=== PATIENT | female | born 1955 | race Hispanic/Latino ===

== ENCOUNTER 2017-12-01 15:19 | Outpatient (CLI) | payer BC | END 2017-12-01 15:20 | disposition home or self-care (01) | LOC: BICMAMMO 15:19 | PROVIDERS: ATTEND Family Medicine | DX: Z12.31 Encounter for screening mammogram for malignant neoplasm of breast (principal) | CPT/HCPCS: 77063; 77067 ==

== ENCOUNTER 2018-10-20 07:20 | Outpatient (CLI) | payer BC ==
[2018-10-20 08:09] LABS: Estimated GFR-MDRD - POC Greater than 90
--- NOTE | 2018-10-20 10:31 | CT ---
ABDOMEN AND PELVIC CT SCAN WITH IV CONTRAST: Date: 10/20/18 HISTORY: 63-year-old female with history of epigastric pain and gastritis. Helicobacter associated gastritis. FINDINGS: Lung bases appear clear. Small hiatal hernia. There is an approximately 3.0 cm diameter nodular soft tissue density in the fundus of the stomach. I f the patient has not been endoscoped recently and this is a suspected new finding, consideration for endoscopy should be considered. The liver, gallbladder, pancreas, spleen, and adrenal glands are unremarkable. No renal calculus or G U obstruction. Very small, fat-containing umbilical hernia. Huge, lower anterior abdominal wall hernia, extending fr om right lateral to left lateral abdomen, overall 30 cm transversely, containing extensive mesentery and small bowel. Within this huge hernia, there are some areas of what appear to be linear fibrosis a nd possible scarring with some associated mesenteric fat stranding resulting in some traction changes upon the small bowel, somewhat mass-like in appearance, but without a focal discrete mass. There is at least one minimally enlarged mesenteric lymph node up to 0.8 cm in short axis. There do appear to be several small bowel loops associated with this hernia, as well as this area of mesenteric fibrotic change which shows some minimal focal wall thickening, which is nonspecific. Some of these small bowel loops have a somewhat tethered appearance. IMPRESSION: 1. Huge anterior abdominal wall hernia extending from the right lateral to the left lateral abdomen, containing some linear stranding, having the appearance of some chronic fibrosis and/or scarring, so mewhat associated with several small bowel loops which appear slightly tethered. There is at least on e borderline enlarged mesenteric lymph node. 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 No evidence for bowel obstruction. 2. Approximately 3.0 cm diameter somewhat focal nodular area of soft tissue density in the fundus of the stomach. 3. Small hiatal hernia. 4. No evidence for other significant acute process. Consider follow-up evaluation to ensure stabilit y. POS: TPC
== END 2018-10-20 07:21 | disposition home or self-care (01) ==
LOC: BICCT 07:20
PROVIDERS: ATTEND Internal Medicine Gastroenterology
DX: R10.13 Epigastric pain (principal); B96.81 Helicobacter pylori [H. pylori] as the cause of diseases classified elsewhere; K43.9 Ventral hernia without obstruction or gangrene; R59.0 Localized enlarged lymph nodes; R93.3 Abnormal findings on diagnostic imaging of other parts of digestive tract; K44.9 Diaphragmatic hernia without obstruction or gangrene
CPT/HCPCS: 74177; 82565

== ENCOUNTER 2018-12-01 15:44 | Outpatient (CLI) | payer BC ==
[2018-12-01 17:43] LABS: #Basophils 0.1 thou/uL (0.0-0.2); #Eosinphils 0.2 thou/uL (0.0-0.7); #Lymphocytes 2.1 thou/uL (1.20-3.40); #Monocytes 0.4 thou/uL (0.11-0.59); #Neutrophils 4.2 thou/uL (1.40-6.50); %Basophils 1.1 % (0.0-1.0); %Monocytes 5.3 % (0.0-10.0); %Neutrophils 60.6 % (42.0-75.0); Mean Corpuscular HGB CONC 33.1 g/dL (32.0-36.0); Mean Corpuscular Volume 81.7 fL (78.0-98.0); Mean Platelet Volume 8.7 fL (7.4-10.4); Platelet Count 274 thou/uL (130-400); RBC Distribution Width 12.7 % (11.5-14.5); Red Blood Cell (RBC) Count 4.81 mill/uL (4.20-5.40)
[2018-12-01 18:03] LABS: ALT (SGPT) 11 U/L (8-55); AST (SGOT) 15 U/L (5-34); Albumin 4.1 g/dL (3.4-4.8); Alkaline Phosphatase 118 U/L (40-150); Anion Gap 12 mmol/L (10-20); BUN (Urea Nitrogen) 8 mg/dL (9.8-20.1); Bilirubin, Total 0.5 mg/dL (0.2-1.2); Calc. Creatinine Clearance 0 mL/min (70-130); Calcium 9.6 mg/dL (7.8-10.44); Carbon Dioxide 27 mmol/L (23-31); Chloride 103 mmol/L (98-107); Estimated GFR-MDRD Greater than 90; Globulin 3.6 g/dL (2.4-3.5); Glucose 92 mg/dL (80-115); Potassium 3.3 mmol/L (3.5-5.1); Protein, Total 7.7 g/dL (6.0-8.3); Sodium 139 mmol/L (136-145)
== END 2018-12-01 15:45 | disposition home or self-care (01) ==
LOC: LABBT 15:44
PROVIDERS: ATTEND Surgery
DX: Z01.812 Encounter for preprocedural laboratory examination (principal); K43.2 Incisional hernia without obstruction or gangrene
CPT/HCPCS: 80053; 85025; 93005; 93010

== ENCOUNTER 2018-12-02 14:09 | Outpatient (CLI) | payer BC | END 2018-12-02 14:10 | disposition home or self-care (01) | LOC: BICMAMMO 14:09 | PROVIDERS: ATTEND Family Medicine | DX: Z12.31 Encounter for screening mammogram for malignant neoplasm of breast (principal) | CPT/HCPCS: 77063; 77067 ==

== ENCOUNTER 2018-12-08 05:45 | Inpatient (IN) | payer BC ==
[2018-12-01 16:11] VITALS: BMI 34.2
[2018-12-08] MEDS ORDERED: Bupivacaine HCl 0.5%/Epinephrine 1:200,000/PF 30 ml Vial ONE (06:34)
[2018-12-08] MEDS ORDERED: CEFAZOLIN 2 GM/50 ML BAG ONE (06:39)
[2018-12-08] MEDS ORDERED: Fentanyl 100 MCG/2 ML VIAL ONE (07:23)
[2018-12-08] MEDS ORDERED: SUGAMMADEX SODIUM 200 MG/2 ML VIAL ONE (07:23)
[2018-12-08] MEDS ORDERED: Midazolam HCl 2 mg/2 ml Vial ONE (07:23)
[2018-12-08] MEDS ORDERED: Ondansetron HCl/PF 4 MG/2 ML Vial IVP PRN (08:36)
[2018-12-08] MEDS ORDERED: HYDROmorphone 2 MG/ML VIAL SLOW IVP PRN (08:36)
[2018-12-08] MEDS ORDERED: Promethazine HCl 25 MG/ML VIAL IM PRN ×3 (08:36→10:41)
[2018-12-08] MEDS ORDERED: Promethazine HCl 25 MG/ML VIAL SLOW IVP PRN (08:36)
[2018-12-08] MEDS ORDERED: diphenhydrAMINE 50 MG/ML VIAL IVP PRN (08:37)
[2018-12-08] MEDS ORDERED: fentaNYL Citrate/PF 2,000 MCG in Sodium Chloride 0.9% 60 ML IV PRN (08:37)
[2018-12-08] MEDS ORDERED: diphenhydrAMINE 25 MG CAP PO PRN (08:37)
[2018-12-08] MEDS ORDERED: Ondansetron PF 4 MG/2 ML Vial IVP PRN ×2 (08:37→10:41)
[2018-12-08] MEDS ORDERED: diphenhydrAMINE 50 MG/ML VIAL IM PRN (08:37)
[2018-12-08] MEDS ORDERED: Naloxone HCl 0.4 mg/ml Vial IV PRN (08:37)
[2018-12-08] MEDS ORDERED: Zolpidem Tartrate 5 MG TAB PO PRN (08:37)
[2018-12-08] MEDS ORDERED: Ketorolac Tromethamine 30 MG/ML VIAL IVP PRN (08:37)
[2018-12-08] MEDS ORDERED: Communication Order-Pharmacy FS SCH (08:45)
[2018-12-08] MEDS ORDERED: hydrALAZINE 20 MG/ML VIAL SLOW IVP PRN (10:41)
[2018-12-08] MEDS: Acetaminophen 1,000 MG in Premix Bag 1 BAG IVPB SCH ×2 (12:40→17:43)
[2018-12-08] MEDS ORDERED: PROPOFOL 200 MG/20 ML VIAL ONE (13:09)
[2018-12-08] MEDS ORDERED: Ondansetron PF 4 MG/2 ML Vial ONE (13:09)
[2018-12-08] MEDS ORDERED: Ketorolac Tromethamine 30 MG/ML VIAL ONE (13:09)
[2018-12-08] MEDS ORDERED: Rocuronium Bromide 10 MG/ML (10ML VIAL) ONE (13:09)
[2018-12-08] MEDS ORDERED: Dexamethasone 20 MG/5 ML VIAL ONE (13:09)
[2018-12-08] MEDS ORDERED: Glycopyrrolate 0.2 MG/ML 5 ML SYRINGE ONE (13:09)
[2018-12-08] MEDS ORDERED: Lidocaine 1% PF 5 ML VIAL ONE (13:09)
[2018-12-08] MEDS: CEFAZOLIN 2 GM/50 ML BAG IVPB SCH ×2 (14:43→22:26)
[2018-12-08] MEDS: Sodium Chloride 0.9% 1,000 ML IV SCH ×2 (17:12→19:47)
[2018-12-08] MEDS: Famotidine 20 MG TAB PO SCH (19:47)
[2018-12-08] MEDS: Famotidine/PF 20 mg/2ml Vial SLOW IVP SCH (19:48)
[2018-12-09] MEDS: Acetaminophen 1,000 MG in Premix Bag 1 BAG IVPB SCH ×2 (00:28→05:13)
[2018-12-09] MEDS: Sodium Chloride 0.9% 1,000 ML IV SCH ×3 (05:13→21:39)
[2018-12-09 06:36] LABS: #Lymphocytes 1.4 thou/uL (1.20-3.40); #Monocytes 0.8 thou/uL (0.11-0.59); #Neutrophils 9.7 thou/uL (1.40-6.50); %Basophils 0.4 % (0.0-1.0); %Eosinophils 0.2 % (0.0-10.0); %Lymphocytes 11.8 % (21.0-51.0); %Monocytes 6.9 % (0.0-10.0); %Neutrophils 80.7 % (42.0-75.0); Hemoglobin 11.6 g/dL (12.0-16.0); Mean Corpuscular HGB CONC 32.3 g/dL (32.0-36.0); Mean Corpuscular Hemoglobin 27.1 pg (27.0-31.0); Mean Corpuscular Volume 83.7 fL (78.0-98.0); Mean Platelet Volume 8.7 fL (7.4-10.4); Platelet Count 284 thou/uL (130-400); Red Blood Cell (RBC) Count 4.29 mill/uL (4.20-5.40)
[2018-12-09 07:01] LABS: Anion Gap 15 mmol/L (10-20); BUN (Urea Nitrogen) 8 mg/dL (9.8-20.1); Calc. Creatinine Clearance 131 mL/min (70-130); Calcium 8.4 mg/dL (7.8-10.44); Carbon Dioxide 20 mmol/L (23-31); Chloride 105 mmol/L (98-107); Estimated GFR-MDRD Greater than 90; Glucose 117 mg/dL (80-115); Potassium 4.1 mmol/L (3.5-5.1); Sodium 136 mmol/L (136-145)
--- NOTE | 2018-12-09 09:40 | OP ---
DATE OF PROCEDURE: 12/08/2018 PREOPERATIVE DIAGNOSIS: Incarcerated recurrent incisional ventral hernia with loss of abdominal domain. PROCEDURE PERFORMED: Panniculectomy, 30 x 10 cm resection of the skin, lysis of adhesions, advancement flap, recurrent ventral hernia repair with mesh. INDICATIONS: This is a 63-year-old female who has had two previous incisional ventral hernia repairs in the suprapubic area with recurrence and loss of intestinal domain, both right and left had very large incarcerated ventral hernias. FINDINGS: There were multiple small hernias comprising a larger defect of 8 x 8 cm in the suprapubic region. A 15 x 20 cm piece of mesh was placed was used to help repair in the midline and an 8 x 8 cm piece of mesh was used to support a relaxing incision left lateral. DESCRIPTION OF PROCEDURE: After informed consent was obtained, the patient was taken to the operating room and given general endotracheal anesthesia. She was placed in the supine position. Her abdomen was prepped and draped in usual fashion. An elliptical Pfannenstiel style incision was performed to incise the skin over the hernias. This was further extended utilizing the plasma blade, then dissected out the hernias. There were not reducible. I opened the hernia sac, but it was incarcerated and the bowel was stuck to the hernia sac, so just a slow tedious dissection of taking the bowel down and removing the hernia sac and skin. Once the bowel was fully freed up and the hernia sac was removed. Multiple hernias were found. They were equal or less than to one single large hernia which was about 8 cm. The defect was such though that without relaxation there be too much tension. However, unfortunately within the lower abdomen, I did a relaxing incision of the external oblique fascia. This allowed advancement of the tissue for closure. However, without mesh, this with the left another flank incision, so I wound up using a round piece of 8 x 8 cm Proceed mesh. This was placed in the subfascial plane and secured with 0 Ethibond. Then, a 15 x 20 cm piece of Proceed mesh, which was skirted was prepared with 0 Ethibond in four quadrants. It was inserted intra-abdominally and pulled up to cover the defect with relaxation to help with closure of the midline. Then, the SecureStrap Tacker was used to further secure this to the abdominal wall with the tacks. Then, the midline was closed with #1 Prolene [id number], not under tension. Then, hemostasis assured. The wounds thoroughly irrigated. Of note, I did place omentum under the mesh before we secured it. Then, two drains were placed and brought out through the separate stab wounds. The subcu was reapproximated with interrupted 3-0 Vicryl and the skin closed with skin freida. A sterile bandage applied as well as an abdominal binder. The patient tolerated the procedure well, transferred to Recovery in good condition. Sponge and needle count verified correct x2. Job ID: [id number]
[2018-12-09] MEDS: Enoxaparin Sodium 40 MG/0.4 ML SYRINGE SC SCH (09:56)
[2018-12-09] MEDS: Famotidine 20 MG TAB PO SCH ×2 (09:56→21:38)
[2018-12-09] MEDS: Famotidine/PF 20 mg/2ml Vial SLOW IVP SCH ×2 (09:57→21:40)
--- NOTE | 2018-12-09 09:57 | PRG ---
DATE OF SERVICE: 12/09/2018 SUBJECTIVE: The patient states that her pain is fairly well controlled at about 3 to 4. She reports no nausea or vomiting, but has not passed any flatus yet. She has a catheter in with good urine output. She is tolerating clear liquids and hungry for advancing her diet. OBJECTIVE: VITAL SIGNS: Her temperature is 98.2, pulse 82, and blood pressure 109/69. GENERAL: She looks good. She is awake, alert, walking. No evidence of recurrence of the hernia. Her drains are putting out 50 and 20, a total of 70 mL. Urine output was 1000. LABORATORY DATA: Her white count is 12, hemoglobin and hematocrit of 11 and 35, platelet count 284. Electrolytes are fine. ASSESSMENT: Doing well. PLAN: Full liquids. Discontinue Mcgowan. Keep ambulating. Job ID: [id number]
[2018-12-10] MEDS: Sodium Chloride 0.9% 1,000 ML IV SCH ×3 (05:45→21:08)
[2018-12-10] MEDS: Famotidine/PF 20 mg/2ml Vial SLOW IVP SCH ×2 (10:05→21:08)
[2018-12-10] MEDS: Famotidine 20 MG TAB PO SCH ×2 (10:14→21:22)
--- NOTE | 2018-12-10 12:50 | PRG ---
DATE OF SERVICE: 12/10/2018 SUBJECTIVE: The patient is a 63-year-old female, status post panniculectomy, skin resection, lysis of adhesions, advancement of flap, and recurrent ventral hernia repair. She is postop day 2 and this morning, she reported she is urinating without difficulties and has had bowel movements overnight. She was advanced to a regular diet and is tolerating that fine. Pain is well controlled. Lower abdominal dressings are in place and the patient reports no significant oozing or drainage. She continues to ambulate and sit up in bed. She denies nausea, vomiting, diarrhea, and states her pain is well controlled. OBJECTIVE: VITAL SIGNS: Temperature 98.5, pulse 100, respirations 18, oxygen saturation 92% on room air, blood pressure 130/79. GENERAL: Alert and well-appearing, middle-aged female, sitting up at edge of bed. NEUROLOGIC: GCS is 15. Alert and oriented x3. Gross motor and sensation intact. Pupils equal, round, reactive to light. PULMONARY: No signs of acute distress. Equal chest rise and fall. Lung donato clear bilaterally. HEART: Tachycardic, but with regular rhythm. No murmurs, gallops, or rubs. GI: Abdomen is soft, appropriately tender to palpation, and nondistended with positive bowel sounds. Lower abdominal wound dressing is clean, dry, and intact with no signs of purulence or discharge. EXTREMITIES: Gross motor and sensation intact in all four extremities. 2+ pulses in all extremities. No swelling noted. LABORATORY FINDINGS: There are no laboratory findings to discuss. DIAGNOSTIC FINDINGS: There are no diagnostic findings to discuss. ASSESSMENT: Status post incarcerated ventral hernia. PLAN: The patient was encouraged to continue to ambulate. She is also to continue a regular diet. Her wound dressing will be evaluated tomorrow. Continue pain regimen as previously prescribed as well as Lovenox for DVT prophylaxis. We will continue to receive supportive care as well as physical therapy. The patient was seen and examined by Dr. Ibarra and myself during rounds this morning. Job ID: [id number]
[2018-12-10] MEDS: Enoxaparin Sodium 40 MG/0.4 ML SYRINGE SC SCH (13:41)
[2018-12-11] MEDS ORDERED: Ibuprofen 600 MG TAB PO PRN (05:28)
[2018-12-11 07:36] LABS: #Eosinphils 0.5 thou/uL (0.0-0.7); #Lymphocytes 1.1 thou/uL (1.20-3.40); #Monocytes 0.4 thou/uL (0.11-0.59); #Neutrophils 3.1 thou/uL (1.40-6.50); %Basophils 0.5 % (0.0-1.0); %Eosinophils 10.2 % (0.0-10.0); %Lymphocytes 21.1 % (21.0-51.0); %Monocytes 8.3 % (0.0-10.0); %Neutrophils 59.9 % (42.0-75.0); Hemoglobin 10.7 g/dL (12.0-16.0); Mean Corpuscular HGB CONC 32.2 g/dL (32.0-36.0); Mean Corpuscular Hemoglobin 27.2 pg (27.0-31.0); Mean Corpuscular Volume 84.4 fL (78.0-98.0); Mean Platelet Volume 8.2 fL (7.4-10.4); Platelet Count 227 thou/uL (130-400); RBC Distribution Width 13.1 % (11.5-14.5); Red Blood Cell (RBC) Count 3.94 mill/uL (4.20-5.40); White Blood Cell (WBC) Count 5.2 thou/uL (4.8-10.8)
[2018-12-11 07:56] LABS: Anion Gap 11 mmol/L (10-20); BUN (Urea Nitrogen) 9 mg/dL (9.8-20.1); Calc. Creatinine Clearance 140 mL/min (70-130); Calcium 8.6 mg/dL (7.8-10.44); Carbon Dioxide 27 mmol/L (23-31); Chloride 105 mmol/L (98-107); Estimated GFR-MDRD Greater than 90; Glucose 103 mg/dL (80-115); Magnesium 1.8 mg/dL (1.6-2.6); Phosphorus 2.9 mg/dL (2.3-4.7); Potassium 3.6 mmol/L (3.5-5.1); Sodium 139 mmol/L (136-145)
[2018-12-11] MEDS: HYDROcodone/Acetaminophen 7.5/325 mg Tablet PO PRN ×4 (08:33→20:44)
[2018-12-11] MEDS: Enoxaparin Sodium 40 MG/0.4 ML SYRINGE SC SCH (08:33)
[2018-12-11] MEDS: Famotidine 20 MG TAB PO SCH ×2 (08:33→20:43)
[2018-12-11] MEDS: Famotidine/PF 20 mg/2ml Vial SLOW IVP SCH (09:37)
[2018-12-11] MEDS ORDERED: Potassium Phosphate 30 MMOL in Sodium Chloride 0.9% 500 ML IVPB SCH (12:00)
[2018-12-11] MEDS ORDERED: Magnesium 2 GM/50 ML 2 GM in Premix Bag 1 BAG IVPB SCH (12:00)
--- NOTE | 2018-12-11 16:51 | PRG ---
DATE OF SERVICE: 12/11/2018 SUBJECTIVE: The patient is status post panniculectomy, skin resection, lysis of adhesion, and advancement of flap, and recurrent ventral hernia. She is postoperative day 3 this morning and reports no acute events overnight. She is urinating and having bowel movements without difficulties, tolerating a regular diet, and pain is well controlled. Lower abdominal dressing is in place with no significant oozing or drainage. She denies nausea, vomiting, or diarrhea. OBJECTIVE: VITAL SIGNS: Temperature 98.1, pulse 83, respirations 18, oxygen saturation 95% on room air, and blood pressure 123/78. GENERAL: Alert and well-appearing middle-aged female, sitting up in bed with family at bedside. NEURO: GCS is 15. Alert and oriented x3. Gross motor and sensation intact, equal. Pupils equal, round, and reactive to light. PULMONARY: No signs of acute distress. Equal chest rise and fall. Lung donato clear bilaterally. HEART: Regular rate and rhythm. No murmurs, gallops, or rubs. GI: Abdomen is soft, appropriately tender to palpation. Nondistended with positive active bowel sounds. Lower abdominal wound is clean, dry, and intact with no signs of purulence. Bilateral lower abdominal drains in place with serosanguineous discharge. All freida intact with no signs of infection along the staple line. EXTREMITIES: Gross motor and sensation intact in all 4 extremities, 2+ pulses in all extremities. No swelling noted. LABORATORY FINDINGS: White count 5.2, hemoglobin 10.7, hematocrit 33.2, and platelets 227. Sodium 139, potassium 3.6, chloride 105, carbon dioxide 27, BUN 9, and creatinine 0.56. Phos 2.9. Magnesium 1.8. DIAGNOSTIC FINDINGS: There are no diagnostic findings to report. ASSESSMENT: 1. Status post incarcerated ventral hernia. 2. Hypokalemia. 3. Hypophosphatemia. 4. Hypomagnesemia. PLAN: The patient will continue with a regular diet. We will replace potassium, phos, and magnesium. She will continue to work with physical therapy. We will leave bilateral lower abdominal RIVKA drains in place. The patient is encouraged to continue to sit up in chair and walk every day. We will continue Lovenox for DVT prophylaxis. The patient was seen and examined by Dr. Ibarra and myself this morning during rounds. Job ID: [id number]
[2018-12-12 05:02] LABS: #Eosinphils 0.7 thou/uL (0.0-0.7); #Lymphocytes 1.4 thou/uL (1.20-3.40); #Monocytes 0.4 thou/uL (0.11-0.59); #Neutrophils 2.9 thou/uL (1.40-6.50); %Basophils 0.6 % (0.0-1.0); %Lymphocytes 25.5 % (21.0-51.0); %Monocytes 6.8 % (0.0-10.0); %Neutrophils 54.1 % (42.0-75.0); Hemoglobin 10.7 g/dL (12.0-16.0); Mean Corpuscular HGB CONC 32.1 g/dL (32.0-36.0); Mean Corpuscular Hemoglobin 27.2 pg (27.0-31.0); Mean Corpuscular Volume 84.7 fL (78.0-98.0); Mean Platelet Volume 8.4 fL (7.4-10.4); Platelet Count 255 thou/uL (130-400); RBC Distribution Width 13.1 % (11.5-14.5); Red Blood Cell (RBC) Count 3.93 mill/uL (4.20-5.40); White Blood Cell (WBC) Count 5.4 thou/uL (4.8-10.8)
[2018-12-12 05:22] LABS: Anion Gap 11 mmol/L (10-20); BUN (Urea Nitrogen) 8 mg/dL (9.8-20.1); Calc. Creatinine Clearance 140 mL/min (70-130); Calcium 8.7 mg/dL (7.8-10.44); Carbon Dioxide 28 mmol/L (23-31); Chloride 102 mmol/L (98-107); Estimated GFR-MDRD Greater than 90; Glucose 104 mg/dL (80-115); Magnesium 1.8 mg/dL (1.6-2.6); Phosphorus 3.9 mg/dL (2.3-4.7); Potassium 3.7 mmol/L (3.5-5.1); Sodium 137 mmol/L (136-145)
[2018-12-12] MEDS: Famotidine 20 MG TAB PO SCH ×2 (07:54→20:31)
[2018-12-12] MEDS: Enoxaparin Sodium 40 MG/0.4 ML SYRINGE SC SCH (07:54)
[2018-12-12] MEDS: HYDROcodone/Acetaminophen 7.5/325 mg Tablet PO PRN ×2 (09:45→15:58)
[2018-12-12] MEDS: Acetaminophen 325 MG TAB PO PRN (20:34)
[2018-12-13] MEDS: Enoxaparin Sodium 40 MG/0.4 ML SYRINGE SC SCH (09:38)
[2018-12-13] MEDS: Famotidine 20 MG TAB PO SCH (09:38)
[2018-12-13] MEDS: Acetaminophen 325 MG TAB PO PRN (10:56)
[2018-12-13 11:58] VITALS: BP 129/77; TEMP 98.2
== END 2018-12-13 13:15 | disposition home or self-care (01) | DRG 355 ==
LOC: SDC 05:45 → SJJU 12:15
PROVIDERS: ADMIT Surgery; ATTEND Surgery
PROC: 0WUF0JZ Supplement Abdominal Wall with Synthetic Substitute, Open Approach (ICD-10-PCS; principal; 2018-12-08)
PROC: 0JX80ZC Transfer Abdomen Subcutaneous Tissue and Fascia with Skin, Subcutaneous Tissue and Fascia, Open Approach (ICD-10-PCS; 2018-12-08)
PROC: 0HB7XZZ Excision of Abdomen Skin, External Approach (ICD-10-PCS; 2018-12-08)
DX: K43.0 Incisional hernia with obstruction, without gangrene (principal); I10 Essential (primary) hypertension; E78.5 Hyperlipidemia, unspecified; E66.9 Obesity, unspecified; Z68.34 Body mass index [BMI] 34.0-34.9, adult; E87.6 Hypokalemia; E83.39 Other disorders of phosphorus metabolism; E83.42 Hypomagnesemia; M19.90 Unspecified osteoarthritis, unspecified site; Z79.899 Other long term (current) drug therapy; Z90.710 Acquired absence of both cervix and uterus
CPT/HCPCS: 36415; 36416; 80048; 83735; 84100; 85025; 88305; C1781; J0131; J0670; J1100; J1650; J1885; J2001; J2250; J2405; J2704; J3010; J3475; J7050; S0028

== ENCOUNTER 2019-10-05 13:30 | Inpatient (IN) | payer BC, MEDICARE ==
[2019-11-30 09:01] VITALS: BMI 35.2
--- NOTE | 2019-12-05 14:35 | HP ---
HISTORY OF PRESENT ILLNESS: The patient is a 64-year-old female with a long history of progressive bilateral knee pain, right greater than left. She has a history of bilateral knee arthroscopies done in 2002 and 2004 by me, which were initially successful. Since that time, she has had intermittent gradual progressive pain, right greater than left, which has persisted despite rest, restriction of activities, anti-inflammatory medications, and cortisone injections. The pain is now interfering with day-to-day activities including walking, getting dressed, and sleeping. PAST MEDICAL HISTORY: As noted above. The patient also has history of hypertension and high cholesterol. CURRENT MEDICATIONS: Include: 1. Pravastatin. 2. Triamterene. 3. Hydrochlorothiazide. 4. Pantoprazole. 5. Tramadol. 6. Ibuprofen. ALLERGIES: SHE HAS NO KNOWN ALLERGIES. FAMILY HISTORY: Otherwise unremarkable. SOCIAL HISTORY: Otherwise unremarkable. REVIEW OF SYSTEMS: Otherwise unremarkable. PHYSICAL EXAMINATION: GENERAL: Reveals a healthy female. HEENT: Unremarkable. NECK: Supple. CHEST: Clear. HEART: Regular rate and rhythm. ABDOMEN: Soft and nontender. PELVIC: Deferred. RECTAL: Deferred. BREASTS: Deferred. EXTREMITIES: Pertinent findings are related to her knees. There is puffiness and mild varus deformity bilaterally. There are healed arthroscopy puncture wounds bilaterally. There is tenderness and crepitus over the medial joint line bilaterally, right greater than left. There is no instability of either knee. Range of motion is 0 to 120 degrees bilaterally. There is mild crepitus with range of motion. There is no pain with range of motion of her hip joints. Neurovascular exam is intact. Pulses are 2+. There is mild antalgic gait. IMAGING STUDIES: X-rays of both knees reveal [id number] collapse medially of both knees. IMPRESSION: Posttraumatic degenerative arthritis of both knees, right symptomatic more than left. PLAN: Right total knee replacement. She may eventually require staged left total knee replacement. The nature of the surgery, length of recovery, and potential complications such as infection, loss of motion, incomplete relief, thromboembolic phenomenon, delayed wound healing, possible neurovascular injury, possible transfusion, and need for revision have been discussed in detail. Job ID: [id number]
[2019-12-11] MEDS ORDERED: Tranexamic Acid 1,000 MG/10 ML VIAL ONE ×2 (05:55→09:16)
[2019-12-11] MEDS ORDERED: Sodium Chloride 0.9% 100 ML ONE (05:55)
[2019-12-11] MEDS ORDERED: Vancomycin 1.5 GRAM/300 ML BAG 1.5 GM/300 ML BAG ONE (05:55)
[2019-12-11] MEDS ORDERED: Fentanyl 100 MCG/2 ML VIAL ONE ×3 (06:01→09:23)
[2019-12-11] MEDS ORDERED: Lidocaine 1% (PF) 30 ML VIAL ONE (06:24)
[2019-12-11] MEDS ORDERED: Midazolam HCl 2 mg/2 ml Vial ONE (06:24)
[2019-12-11] MEDS ORDERED: Lidocaine 1% w/Epinephrine 1:100K 20 ML VIAL ONE (06:28)
[2019-12-11] MEDS ORDERED: Bupivacaine 0.25% HCL 30 ML VIAL ONE (06:28)
[2019-12-11] MEDS ORDERED: Fentanyl 100 MCG/2 ML VIAL IV PRN (07:00)
[2019-12-11] MEDS ORDERED: Ondansetron PF 4 MG/2 ML Vial IVP PRN ×2 (07:00→11:04)
[2019-12-11] MEDS ORDERED: Promethazine HCl 25 MG/ML VIAL IM PRN (07:00)
[2019-12-11] MEDS ORDERED: traMADol HCl 50 MG TAB PO PRN ×2 (07:00)
[2019-12-11] MEDS ORDERED: Acetaminophen 325 MG TAB PO PRN ×2 (07:00→11:04)
[2019-12-11] MEDS ORDERED: HYDROcodone/Acetaminophen 10/325 mg Tablet PO PRN ×3 (07:00→11:04)
[2019-12-11] MEDS ORDERED: Zolpidem Tartrate 5 MG TAB PO PRN ×2 (07:00→11:04)
[2019-12-11] MEDS ORDERED: Ropivacaine HCl/PF 250 ML in Premix Bag 1 BAG NERVE BLCK SCH (07:00)
[2019-12-11] MEDS ORDERED: Tranexamic Acid 1,000 MG in Sodium Chloride 0.9% 100 ML IVPB SCH ×2 (09:15→11:04)
--- NOTE | 2019-12-11 09:26 | RAD ---
Exam:2 views right knee HISTORY: Status post arthroplasty COMPARISON: None FINDINGS: Postoperative changes compatible right knee arthroplasty. Near anatomic alignment. IMPRESSION: Changes compatible right knee arthroplasty.
--- NOTE | 2019-12-11 09:40 | OP ---
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 PREOPERATIVE DIAGNOSIS: Degenerative arthritis, right knee. POSTOPERATIVE DIAGNOSIS: Degenerative arthritis, right knee. PROCEDURES PERFORMED: 1. Right total knee replacement with computer-assisted navigation with cemented [place] Triathlon components (#4 femoral component, #3 primary tibial baseplate with 9 mm CS plastic insert, and all plastic A29 patellar component). DESCRIPTION OF PROCEDURE: After satisfactory anesthesia was induced in supine position, sequential compression devices were placed on the nonoperative leg throughout the procedure. The right leg was then prepped and draped in routine sterile fashion. The right leg was elevated and exsanguinated with an Esmarch bandage and the tourniquet inflated to 300 mmHg. A gently curved medial parapatellar incision was made, carried down to the subcutaneous tissues and bleeding points controlled with the Bovie cautery. Medial parapatellar arthrotomy was performed. Patella head lag and portion of the pad were excised for exposure. There was marked degenerative arthritis of the knee especially medially with large areas of exposed bone. Meniscal remnants and osteophytes were removed. Using the [employer] pinless navigation system and the appropriate guides, the distal femoral and proximal tibial articular surfaces were excised with an oscillating saw to accept the trial components. It was felt #4 femoral component, #3 tibial baseplate with 9 mm CS plastic insert gave appropriate size, fit, stability, and correction of the preoperative deformity. The patellar articular surface was excised to accept an all-plastic A29 patellar component. There was good range of motion and good patellar tracking. The trial components were removed. The knee was copiously irrigated with pulsatile lavage and bony surfaces were thoroughly cleaned and dried. The permanent components were then cemented in a single stage using one package of cement premixed with 1 g of tobramycin powder. Excess cement was removed. There was good fit and stability of the components. The knee was again copiously irrigated. The medial retinaculum and quadriceps mechanism was closed with interrupted #2 Vicryl and a running #2 Quill. Subcutaneous tissues were closed with a running 0 Quill suture. The skin closed with running subcuticular 3-0 Monoderm and SurgiSeal skin adhesive. A sterile bulky compressive dressing was applied. The tourniquet deflated after 72 minutes. The foot promptly pinked up. Sequential compression device was applied to the operative leg and she was awakened and taken to recovery room in stable condition. There were no apparent intraoperative complications. ESTIMATED BLOOD LOSS: Less than 100 mL. Job ID: [id number]
[2019-12-11] MEDS ORDERED: Promethazine HCl 25 MG/ML VIAL SLOW IVP PRN (11:04)
[2019-12-11] MEDS ORDERED: Pantoprazole 40 MG GRANULES PACKET PO PRN (11:04)
[2019-12-11] MEDS ORDERED: diphenhydrAMINE 25 MG CAP PO PRN (11:04)
[2019-12-11] MEDS ORDERED: Fentanyl 100 MCG/2 ML VIAL SLOW IVP PRN ×2 (11:04)
[2019-12-11] MEDS: Sodium Chloride 0.9% 1,000 ML IV SCH ×2 (11:25→21:06)
[2019-12-11] MEDS: Ketorolac Tromethamine 30 MG/ML VIAL IVP SCH ×2 (11:44→17:52)
[2019-12-11] MEDS ORDERED: Ketorolac Tromethamine 30 MG/ML VIAL IVP SCH (12:00)
[2019-12-11] MEDS: CEFAZOLIN 2 GM in Premix Bag 1 BAG IVPB SCH ×2 (13:27→21:08)
[2019-12-11] MEDS ORDERED: Ropivacaine 0.5% HCl/PF (150 MG/30 ML VIAL) ONE (14:40)
[2019-12-11] MEDS ORDERED: Ropivacaine 0.2% HCl/PF (40 MG/20 ML VIAL) ONE (14:40)
[2019-12-11] MEDS ORDERED: Dexamethasone 20 MG/5 ML VIAL ONE (14:40)
[2019-12-11] MEDS ORDERED: Ondansetron PF 4 MG/2 ML Vial ONE (14:40)
[2019-12-11] MEDS ORDERED: PROPOFOL 200 MG/20 ML VIAL ONE (14:40)
[2019-12-11] MEDS ORDERED: Vancomycin 1.5 GRAM/300 ML BAG 1.5 GM in Premix Bag 1 BAG IVPB SCH (18:00)
[2019-12-11] MEDS: Simvastatin 5 MG TAB PO SCH (21:07)
[2019-12-11] MEDS: Senokot S 8.6-50 MG TAB PO SCH (21:07)
[2019-12-11] MEDS: Aspirin 81 mg Enteric Coated Tablet PO SCH (21:07)
--- NOTE | 2019-12-11 21:57 | PDOC.HOSPP ---
- Subjective Encounter Date: 12/11/19 Encounter Time: 16:00 Subjective: Patient seen and examined for med mngt. No CP/SOB. Pain controlled. No new complaints. - Objective Vital Signs & Weight: Vital Signs (12 hours) Temp Pulse Resp BP Pulse Ox 12/11/19 19:19 98.2 F 82 16 102/55 L 94 L 12/11/19 10:50 97.8 F 86 16 118/74 92 L Weight Weight 199 lb I&O: 12/10/19 12/11/19 12/12/19 06:59 06:59 06:59 Intake Total 2300 Output Total 550 Balance 1750 Additional Labs: Laboratory Tests 11/30/19 11/30/19 09:35 09:35 Hgb 12.6 Hct 39.5 BUN 12 Creatinine 0.67 EKG Reviewed by me: Yes (SR) Hospitalist ROS - Review of Systems Cardiovascular: denies: chest pain, palpitations, orthopnea, paroxysmal noc. dyspnea, edema, light headedness, other Gastrointestinal: denies: nausea, vomiting, abdominal pain, diarrhea, constipation, melena, hematochezia, other - Medication Medications: Active Medications Generic Name Dose Route Start Last Admin Trade Name Freq PRN Reason Stop Dose Admin Aspirin 81 mg 12/11/19 21:00 12/11/19 21:07 Ecotrin PO 81 mg BID MISA Administration Cefazolin Sodium/Dextrose 2 gm 50 mls @ 100 mls/hr 12/11/19 14:00 12/11/19 21 :08 / Device IVPB 12/11/19 22:29 50 mls Q8HR MISA Administration Sodium Chloride 1,000 mls @ 100 mls/hr 12/11/19 11:04 12/11/19 21:06 Normal Saline 0.9% IV 1,000 mls .Q10H MISA Administration Ketorolac Tromethamine 30 mg 12/11/19 12:00 12/11/19 17:52 Toradol IVP 12/13/19 06:01 Not Given Q6HR MISA Senna/Docusate Sodium 2 tab 12/11/19 21:00 12/11/19 21:07 Senokot S PO 2 tab BID MISA Administration Simvastatin 10 mg 12/11/19 21:00 12/11/19 21:07 Zocor PO 10 mg HS MISA Administration - Exam General Appearance: NAD Heart: RRR, no gallops, no rubs Respiratory: no wheezes, no rales, no ronchi Gastrointestinal: non-tender, non-distended, normal bowel sounds Extremities: no cyanosis, no clubbing Neurological: no new deficit Hosp A/P - Plan plan discussed w/ family, deleon catheter, PT/OT, incentive spirometry, DVT proph w/SCDs HTN HLD GERD Seasonal allergies Obesity BMI 35 PLAN: Cont Triamterene/HCTZ Cont Singulair Cont Statins Cont PT/OT DVT prophylaxis per protocol Full code. DPOA - daughter
[2019-12-12] MEDS: Ketorolac Tromethamine 30 MG/ML VIAL IVP SCH ×4 (00:31→18:02)
[2019-12-12 05:47] LABS: Hemoglobin 10.5 g/dL (12.0-16.0); Mean Corpuscular HGB CONC 32.6 g/dL (32.0-36.0); Mean Corpuscular Hemoglobin 26.6 pg (27.0-31.0); Mean Corpuscular Volume 81.8 fL (78.0-98.0); Mean Platelet Volume 9.4 fL (7.4-10.4); Platelet Count 209 thou/uL (130-400); RBC Distribution Width 12.6 % (11.5-14.5); Red Blood Cell (RBC) Count 3.93 mill/uL (4.20-5.40); White Blood Cell (WBC) Count 13.4 thou/uL (4.8-10.8)
[2019-12-12] MEDS: Sodium Chloride 0.9% 1,000 ML IV SCH ×2 (07:42→18:14)
--- NOTE | 2019-12-12 08:42 | PDOC.HOSPP ---
- Subjective Encounter Date: 12/12/19 Encounter Time: 08:41 Subjective: Patient seen and examined for medical management. No new complaints. No overnight events. No n/v - Objective Vital Signs & Weight: Vital Signs (12 hours) Temp Pulse Resp BP Pulse Ox 12/12/19 07:22 97.6 F 75 14 114/70 99 12/12/19 04:00 97.5 F L 77 16 112/68 97 12/11/19 23:14 98.2 F 74 16 119/69 96 Weight Weight 199 lb I&O: 12/11/19 12/12/19 12/13/19 06:59 06:59 06:59 Intake Total 4510 Output Total 3350 Balance 1160 Result Diagrams: 12/12/19 05:02 Hospitalist ROS - Review of Systems Cardiovascular: denies: chest pain, palpitations, orthopnea, paroxysmal noc. dyspnea, edema, light headedness, other Gastrointestinal: denies: nausea, vomiting, abdominal pain, diarrhea, constipation, melena, hematochezia, other - Medication Medications: Active Medications Generic Name Dose Route Start Last Admin Trade Name Freq PRN Reason Stop Dose Admin Aspirin 81 mg 12/11/19 21:00 12/11/19 21:07 Ecotrin PO 81 mg BID MISA Administration Sodium Chloride 1,000 mls @ 100 mls/hr 12/11/19 11:04 12/12/19 07:42 Normal Saline 0.9% IV Not Given .Q10H MISA Ketorolac Tromethamine 30 mg 12/11/19 12:00 12/12/19 05:35 Toradol IVP 12/13/19 06:01 30 mg Q6HR MISA Administration Senna/Docusate Sodium 2 tab 12/11/19 21:00 12/11/19 21:07 Senokot S PO 2 tab BID MISA Administration Simvastatin 10 mg 12/11/19 21:00 12/11/19 21:07 Zocor PO 10 mg HS MISA Administration - Exam General Appearance: NAD Heart: RRR, no gallops Respiratory: CTAB, no wheezes, no rales, no ronchi Gastrointestinal: soft, non-tender, non-distended Extremities: no cyanosis, no clubbing, no edema Hosp A/P - Plan HTN HLD GERD Seasonal allergies Obesity BMI 35 PLAN: Cont Triamterene/HCTZ. Hold if SBP < 130 Cont Singulair/Statins Cont PT/OT DVT prophylaxis
[2019-12-12] MEDS ORDERED: Triamterene/Hydrochlorothiazide 37.5 mg/25 mg Tablet PO SCH (09:00)
[2019-12-12] MEDS: Triamterene/Hydrochlorothiazide 37.5 mg/25 mg Tablet PO SCH (09:21)
[2019-12-12] MEDS: Montelukast Sodium 10 mg Tablet PO SCH (09:21)
[2019-12-12] MEDS: Aspirin 81 mg Enteric Coated Tablet PO SCH ×2 (09:21→21:18)
[2019-12-12] MEDS: Multivitamin W/ Minerals 1 TAB PO SCH (09:21)
[2019-12-12] MEDS: HYDROcodone/Acetaminophen 10/325 mg Tablet PO PRN ×2 (09:25→19:18)
[2019-12-12] MEDS: Senokot S 8.6-50 MG TAB PO SCH ×2 (09:26→21:29)
[2019-12-12] MEDS: traMADol HCl 50 MG TAB PO PRN (21:17)
[2019-12-12] MEDS: Simvastatin 5 MG TAB PO SCH (21:19)
[2019-12-13] MEDS: Ketorolac Tromethamine 30 MG/ML VIAL IVP SCH ×2 (01:45→06:04)
[2019-12-13] MEDS: HYDROcodone/Acetaminophen 10/325 mg Tablet PO PRN ×5 (01:50→23:59)
[2019-12-13] MEDS: Sodium Chloride 0.9% 1,000 ML IV SCH ×3 (03:16→21:25)
[2019-12-13] MEDS: Aspirin 81 mg Enteric Coated Tablet PO SCH ×2 (08:17→20:09)
[2019-12-13] MEDS: Triamterene/Hydrochlorothiazide 37.5 mg/25 mg Tablet PO SCH (08:18)
[2019-12-13] MEDS: Senokot S 8.6-50 MG TAB PO SCH ×2 (08:18→21:25)
[2019-12-13] MEDS: Montelukast Sodium 10 mg Tablet PO SCH (08:18)
[2019-12-13] MEDS: Multivitamin W/ Minerals 1 TAB PO SCH (08:18)
[2019-12-13] MEDS: traMADol HCl 50 MG TAB PO PRN (16:24)
[2019-12-13] MEDS: Simvastatin 5 MG TAB PO SCH (20:09)
[2019-12-14] MEDS: HYDROcodone/Acetaminophen 10/325 mg Tablet PO PRN ×2 (05:19→09:25)
[2019-12-14] MEDS: Sodium Chloride 0.9% 1,000 ML IV SCH (07:37)
[2019-12-14] MEDS: Senokot S 8.6-50 MG TAB PO SCH (09:22)
[2019-12-14] MEDS: Montelukast Sodium 10 mg Tablet PO SCH (09:25)
[2019-12-14] MEDS: Aspirin 81 mg Enteric Coated Tablet PO SCH (09:25)
[2019-12-14] MEDS: Multivitamin W/ Minerals 1 TAB PO SCH (09:25)
[2019-12-14] MEDS: Triamterene/Hydrochlorothiazide 37.5 mg/25 mg Tablet PO SCH (09:25)
--- NOTE | 2019-12-14 10:08 | DIS ---
DATE OF ADMISSION: 12/11/2019 DATE OF DISCHARGE: 12/14/2019 This is Char Cody PA-C dictating a report for Sarkis Alegre MD. CONSULTANTS ON THE CASE: Include [facility] as well as [facility]. PREOPERATIVE DIAGNOSIS: Degenerative arthritis, right knee. POSTOPERATIVE DIAGNOSIS: Degenerative arthritis, right knee. PROCEDURES PERFORMED: Right total knee replacement with computer assisted navigation with cemented [place] Triathlon components. HOSPITAL COURSE: This is a 64-year-old lady, who was indicated for the above-mentioned procedure after failing conservative management. She did well in the operative suite, and postoperatively, she was admitted to [address], where she worked with physical and occupational therapist. She got up out of bed on the day of surgery. Her pain was managed by [facility]. She did ambulate well with therapy on postop day 1 and 2, but felt a little uneasy on postop day 2. She stated that she had a little bit of nausea, but by postop day 3, she was doing very well overall. She was discharged to home on postoperative day #3 to follow up with home health physical therapy. No complications were incurred during her hospital stay. DISCHARGE DISPOSITION: Home. DISCHARGE CONDITION: Stable. DISCHARGE INSTRUCTIONS: The patient will follow up with Dr. Alegre as scheduled. She will also follow up with her home health physical therapist. She will keep surgical site clean, dry, and intact. DISCHARGE MEDICATIONS: See MAR. Job ID: [id number]
[2019-12-14 12:41] VITALS: BP 119/74; TEMP 98.5
== END 2019-12-14 13:12 | disposition home or self-care (01) | DRG 470 ==
LOC: SURG A 12-11 05:34 → SJJU 12-11 10:52
PROVIDERS: ADMIT Orthopaedic Surgery; ATTEND Orthopaedic Surgery
PROC: 0SRC0J9 Replacement of Right Knee Joint with Synthetic Substitute, Cemented, Open Approach (ICD-10-PCS; principal; 2019-12-11)
PROC: 8E0YXBZ Computer Assisted Procedure of Lower Extremity (ICD-10-PCS; 2019-12-11)
DX: M17.31 Unilateral post-traumatic osteoarthritis, right knee (principal); I10 Essential (primary) hypertension; E78.00 Pure hypercholesterolemia, unspecified; K21.9 Gastro-esophageal reflux disease without esophagitis; J30.2 Other seasonal allergic rhinitis; E78.5 Hyperlipidemia, unspecified; E66.9 Obesity, unspecified; Z79.899 Other long term (current) drug therapy; Z90.710 Acquired absence of both cervix and uterus; Z68.35 Body mass index [BMI] 35.0-35.9, adult
CPT/HCPCS: 36415; 85027; C1713; C1776; J0690; J1100; J1885; J2001; J2250; J2405; J2704; J2795; J3010; J3490; S0020

== ENCOUNTER 2019-11-30 08:01 | Outpatient (CLI) | payer BC ==
[2019-11-30 09:51] LABS: #Basophils 0.1 thou/uL (0.0-0.2); #Eosinphils 0.2 thou/uL (0.0-0.7); #Lymphocytes 1.9 thou/uL (1.20-3.40); #Monocytes 0.5 thou/uL (0.11-0.59); #Neutrophils 3.9 thou/uL (1.40-6.50); %Eosinophils 3.4 % (0.0-10.0); %Lymphocytes 29.1 % (21.0-51.0); %Monocytes 7.5 % (0.0-10.0); %Neutrophils 59.1 % (42.0-75.0); Hemoglobin 12.6 g/dL (12.0-16.0); Mean Corpuscular HGB CONC 31.9 g/dL (32.0-36.0); Mean Corpuscular Hemoglobin 25.7 pg (27.0-31.0); Mean Corpuscular Volume 80.6 fL (78.0-98.0); Mean Platelet Volume 8.7 fL (7.4-10.4); Platelet Count 295 thou/uL (130-400); RBC Distribution Width 12.6 % (11.5-14.5); Red Blood Cell (RBC) Count 4.89 mill/uL (4.20-5.40); White Blood Cell (WBC) Count 6.7 thou/uL (4.8-10.8)
[2019-11-30 10:04] LABS: Prothrombin Time 13.3 SEC (12.0-14.7)
[2019-11-30 10:14] LABS: Anion Gap 11 mmol/L (10-20); BUN (Urea Nitrogen) 12 mg/dL (9.8-20.1); Calc. Creatinine Clearance 0 mL/min (70-130); Calcium 9.3 mg/dL (7.8-10.44); Carbon Dioxide 29 mmol/L (23-31); Chloride 102 mmol/L (98-107); Estimated GFR-MDRD 88; Glucose 91 mg/dL (80-115); Sodium 138 mmol/L (136-145)
[2019-11-30 10:23] LABS: Bacteria/HPF None Seen HPF (None Seen); Bilirubin Negative (Negative); Blood, Urine Negative (Negative); Clarity Clear (Clear); Glucose, Urine (Dipstick) Normal (Negative); Leukocyte Negative Leu/uL (Negative); Nitrite Negative (Negative); Protein, Urine (Dipstick) Negative (Neg-Trace); RBC/HPF 0-3 HPF (0-3); Squamous Epithelial 0-3 HPF (0-3); Urobilinogen Normal mg/dL (Less than 2); WBC/HPF 0-3 HPF (0-3)
== END 2019-11-30 08:02 | disposition home or self-care (01) ==
LOC: LABBT 08:01
PROVIDERS: ATTEND Orthopaedic Surgery
DX: Z01.818 Encounter for other preprocedural examination (principal); M17.31 Unilateral post-traumatic osteoarthritis, right knee
CPT/HCPCS: 80048; 81001; 85025; 85610; 87081; 87086; 93005; 93010

== ENCOUNTER 2020-09-30 14:51 | Outpatient (CLI) | payer BC, MEDICARE ==
--- NOTE | 2020-09-30 15:21 | MMO ---
Bilateral MAMMO Bilat Screen [facility]. CLINICAL HISTORY: Patient is 65 years old and is seen for screening. The patient has no family history of breast cancer. The patient has no personal history of cancer. VIEWS: The views performed were: bilateral craniocaudal with tomosynthesis; bilateral mediolateral oblique; and bilateral mediolateral oblique with tomosynthesis. FILMS COMPARED: The present examination has been compared to prior imaging studies performed at [facility] on 03/08/2015, 10/14/2016, 12/01/2017 and 12/02/2018. This study has been interpreted with the assistance of computer-aided detection. MAMMOGRAM FINDINGS: There are scattered fibroglandular densities. There are no suspicious masses, suspicious calcifications, or new areas of architectural distortion. IMPRESSION: THERE IS NO MAMMOGRAPHIC EVIDENCE OF MALIGNANCY. A ROUTINE FOLLOW-UP MAMMOGRAM IN 1 YEAR IS RECOMMENDED. THE RESULTS OF THIS EXAM WERE SENT TO THE PATIENT. ACR BI-RADS Category 1 - Negative MAMMOGRAPHY NOTE: 1. A negative mammogram report should not delay a biopsy if a dominant of clinically suspicious mass is present. 2. Approximately 10% to 15% of breast cancers are not detected by mammography. 3. Adenosis and dense breasts may obscure an underlying neoplasm. Reported by: PRIYANK HUGGINS MD Electonically Signed: [id number]
== END 2020-09-30 14:52 | disposition home or self-care (01) ==
LOC: BICMAMMO 14:51
PROVIDERS: ATTEND Family Medicine
DX: Z12.31 Encounter for screening mammogram for malignant neoplasm of breast (principal)
CPT/HCPCS: 77063; 77067

== ENCOUNTER 2021-02-06 15:30 | Inpatient (IN) | payer BC, MEDICARE ==
[2021-02-10 09:10] VITALS: BMI 35.4
[2021-02-11] MEDS ORDERED: Fentanyl 100 MCG/2 ML VIAL ONE ×4 (05:48→09:44)
[2021-02-11] MEDS ORDERED: EPINEPHrine 1 MG/ML AMP ONE (06:24)
[2021-02-11] MEDS ORDERED: Bupivacaine 0.25% HCL 30 ML VIAL ONE (06:24)
[2021-02-11] MEDS ORDERED: Midazolam HCl 2 mg/2 ml Vial ONE (06:31)
[2021-02-11] MEDS ORDERED: Sodium Chloride 0.9% 100 ML ONE (06:43)
[2021-02-11] MEDS ORDERED: Vancomycin 1.5 GRAM/300 ML BAG ONE (06:43)
[2021-02-11] MEDS ORDERED: Tranexamic Acid 1,000 MG/10 ML VIAL ONE ×2 (06:43→10:00)
[2021-02-11] MEDS ORDERED: Bupivacaine HCl 0.5%/Epinephrine 1:200,000/PF 30 ml Vial ONE (07:05)
[2021-02-11] MEDS ORDERED: Ropivacaine 2% HCl/PF (20 MG/10 ML VIAL) ONE (07:05)
[2021-02-11] MEDS ORDERED: Promethazine HCl 25 MG/ML VIAL IM PRN ×2 (07:15→14:01)
[2021-02-11] MEDS ORDERED: Ropivacaine HCl/PF 250 ML in Premix Bag 1 BAG NERVE BLCK SCH (07:15)
[2021-02-11] MEDS ORDERED: traMADol HCl 50 MG TAB PO PRN ×2 (07:15)
[2021-02-11] MEDS ORDERED: Ondansetron PF 4 MG/2 ML Vial IVP PRN ×2 (07:15→14:01)
[2021-02-11] MEDS ORDERED: Zolpidem Tartrate 5 MG TAB PO PRN ×2 (07:15→14:01)
[2021-02-11] MEDS ORDERED: HYDROcodone/Acetaminophen 10/325 mg Tablet PO PRN ×2 (07:15)
[2021-02-11] MEDS ORDERED: ePHEDrine Sulfate 50 MG/10 ML VIAL ONE (07:16)
[2021-02-11] MEDS ORDERED: PHENYLEPHRINE-NS 100 MCG/ML 10 ML SYRINGE ONE (07:16)
[2021-02-11] MEDS ORDERED: Ondansetron PF 4 MG/2 ML Vial ONE (07:16)
[2021-02-11] MEDS ORDERED: PROPOFOL 200 MG/20 ML VIAL ONE (07:16)
[2021-02-11] MEDS ORDERED: Lidocaine 1% PF 5 ML VIAL ONE (07:16)
[2021-02-11] MEDS ORDERED: Dexamethasone 20 MG/5 ML VIAL ONE (07:16)
[2021-02-11] MEDS ORDERED: Ketorolac Tromethamine 30 MG/ML VIAL ONE (10:52)
[2021-02-11] MEDS ORDERED: Fentanyl 100 MCG/2 ML VIAL SLOW IVP PRN ×2 (14:01)
[2021-02-11] MEDS ORDERED: diphenhydrAMINE 25 MG CAP PO PRN (14:01)
[2021-02-11] MEDS ORDERED: Acetaminophen 325 MG TAB PO PRN (14:01)
[2021-02-11] MEDS ORDERED: Aspirin 81 mg Enteric Coated Tablet PO SCH (14:15)
[2021-02-11] MEDS: HYDROcodone/Acetaminophen 10/325 mg Tablet PO PRN ×2 (14:23→18:21)
[2021-02-11] MEDS: Ketorolac Tromethamine 30 MG/ML VIAL IVP SCH ×3 (14:25→23:58)
[2021-02-11] MEDS: Sodium Chloride 0.9% 1,000 ML IV SCH (14:26)
[2021-02-11] MEDS ORDERED: Multivitamin W/ Minerals 1 TAB PO SCH (14:30)
[2021-02-11] MEDS ORDERED: Ferrous Gluconate 324 MG TAB PO SCH (14:30)
[2021-02-11] MEDS ORDERED: Senokot S 8.6-50 MG TAB PO SCH (14:30)
[2021-02-11] MEDS: CEFAZOLIN 2 GM in Premix Bag 1 BAG IVPB SCH (17:37)
[2021-02-11] MEDS ORDERED: Vancomycin 1.5 GRAM/300 ML BAG 1.5 GM in Premix Bag 1 BAG IVPB SCH (18:00)
[2021-02-11] MEDS: Senokot S 8.6-50 MG TAB PO SCH (21:01)
[2021-02-11] MEDS: Aspirin 81 mg Enteric Coated Tablet PO SCH (21:01)
[2021-02-11] MEDS: Montelukast Sodium 10 mg Tablet PO SCH (21:02)
[2021-02-11] MEDS: Losartan 25 MG TAB PO SCH (21:02)
[2021-02-11] MEDS: Ferrous Gluconate 324 MG TAB PO SCH (21:02)
[2021-02-11] MEDS: Simvastatin 10 MG TAB PO SCH (21:44)
[2021-02-12] MEDS: CEFAZOLIN 2 GM in Premix Bag 1 BAG IVPB SCH
[2021-02-12] MEDS: HYDROcodone/Acetaminophen 10/325 mg Tablet PO PRN ×3 (00:08→15:24)
[2021-02-12] MEDS: Sodium Chloride 0.9% 1,000 ML IV SCH ×3 (01:21→18:38)
[2021-02-12 05:45] LABS: Hemoglobin 9.9 g/dL (12.0-16.0); Mean Corpuscular HGB CONC 31.3 g/dL (32.0-36.0); Mean Corpuscular Hemoglobin 23.8 pg (27.0-31.0); Mean Corpuscular Volume 76.3 fL (78.0-98.0); Mean Platelet Volume 9.1 fL (7.4-10.4); Platelet Count 297 thou/uL (130-400); RBC Distribution Width 13.8 % (11.5-14.5); Red Blood Cell (RBC) Count 4.15 mill/uL (4.20-5.40); White Blood Cell (WBC) Count 13.8 thou/uL (4.8-10.8)
[2021-02-12] MEDS: Ketorolac Tromethamine 30 MG/ML VIAL IVP SCH ×4 (05:54→23:14)
[2021-02-12] MEDS: Cholecalciferol 1,000 UNITS (25 MCG) TAB PO SCH (09:22)
[2021-02-12] MEDS: Aspirin 81 mg Enteric Coated Tablet PO SCH ×2 (09:23→20:17)
[2021-02-12] MEDS: Senokot S 8.6-50 MG TAB PO SCH ×2 (09:23→20:17)
[2021-02-12] MEDS: Triamterene/Hydrochlorothiazide 37.5 mg/25 mg Tablet PO SCH (09:24)
[2021-02-12] MEDS: Ferrous Gluconate 324 MG TAB PO SCH ×2 (09:24→20:17)
[2021-02-12] MEDS: Multivitamin W/ Minerals 1 TAB PO SCH (09:24)
[2021-02-12] MEDS: traMADol HCl 50 MG TAB PO PRN ×2 (18:11→23:13)
[2021-02-12] MEDS: Losartan 25 MG TAB PO SCH (20:17)
[2021-02-12] MEDS: Montelukast Sodium 10 mg Tablet PO SCH (20:17)
[2021-02-12] MEDS: Simvastatin 10 MG TAB PO SCH (20:18)
[2021-02-13] MEDS: HYDROcodone/Acetaminophen 10/325 mg Tablet PO PRN ×4 (03:06→17:53)
[2021-02-13 06:18] LABS: Hemoglobin 9.9 g/dL (12.0-16.0); Mean Corpuscular HGB CONC 30.9 g/dL (32.0-36.0); Mean Corpuscular Hemoglobin 23.5 pg (27.0-31.0); Mean Corpuscular Volume 76.2 fL (78.0-98.0); Mean Platelet Volume 9.4 fL (7.4-10.4); Platelet Count 255 thou/uL (130-400); Red Blood Cell (RBC) Count 4.21 mill/uL (4.20-5.40); White Blood Cell (WBC) Count 10.5 thou/uL (4.8-10.8)
[2021-02-13] MEDS: Ketorolac Tromethamine 30 MG/ML VIAL IVP SCH (06:18)
[2021-02-13] MEDS: traMADol HCl 50 MG TAB PO PRN ×3 (06:20→20:26)
[2021-02-13] MEDS ORDERED: Magnesium Citrate 300 ML BOT PO SCH (07:15)
[2021-02-13] MEDS: Sodium Chloride 0.9% 1,000 ML IV SCH ×2 (07:17→10:40)
[2021-02-13] MEDS: tiZANidine HCl 4 MG TAB PO PRN ×2 (08:37→17:54)
[2021-02-13] MEDS: Multivitamin W/ Minerals 1 TAB PO SCH (08:38)
[2021-02-13] MEDS: Triamterene/Hydrochlorothiazide 37.5 mg/25 mg Tablet PO SCH (08:42)
[2021-02-13] MEDS: Senokot S 8.6-50 MG TAB PO SCH ×2 (08:43→20:25)
[2021-02-13] MEDS: Cholecalciferol 1,000 UNITS (25 MCG) TAB PO SCH (08:44)
[2021-02-13] MEDS: Aspirin 81 mg Enteric Coated Tablet PO SCH ×2 (08:45→20:25)
[2021-02-13] MEDS: Ferrous Gluconate 324 MG TAB PO SCH ×2 (08:45→20:25)
[2021-02-13] MEDS: Simvastatin 10 MG TAB PO SCH (20:24)
[2021-02-13] MEDS: Losartan 25 MG TAB PO SCH (20:25)
[2021-02-13] MEDS: Montelukast Sodium 10 mg Tablet PO SCH (20:25)
[2021-02-14] MEDS: HYDROcodone/Acetaminophen 10/325 mg Tablet PO PRN ×2 (03:40→08:28)
[2021-02-14 05:45] LABS: Hemoglobin 9.5 g/dL (12.0-16.0); Mean Corpuscular HGB CONC 31.7 g/dL (32.0-36.0); Mean Corpuscular Hemoglobin 24.3 pg (27.0-31.0); Mean Corpuscular Volume 76.7 fL (78.0-98.0); Platelet Count 289 thou/uL (130-400); RBC Distribution Width 13.9 % (11.5-14.5); Red Blood Cell (RBC) Count 3.91 mill/uL (4.20-5.40); White Blood Cell (WBC) Count 9.3 thou/uL (4.8-10.8)
[2021-02-14] MEDS: Senokot S 8.6-50 MG TAB PO SCH (08:31)
[2021-02-14] MEDS: Aspirin 81 mg Enteric Coated Tablet PO SCH (08:31)
[2021-02-14] MEDS: Cholecalciferol 1,000 UNITS (25 MCG) TAB PO SCH (08:31)
[2021-02-14] MEDS: Multivitamin W/ Minerals 1 TAB PO SCH (08:32)
[2021-02-14] MEDS: Ferrous Gluconate 324 MG TAB PO SCH (08:32)
[2021-02-14] MEDS: Sodium Chloride 0.9% 1,000 ML IV SCH ×2 (08:33→11:57)
[2021-02-14] MEDS: Triamterene/Hydrochlorothiazide 37.5 mg/25 mg Tablet PO SCH (08:33)
[2021-02-14 11:19] VITALS: BP 129/79; TEMP 98.4
== END 2021-02-14 14:25 | disposition home or self-care (01) | DRG 470 ==
LOC: SJJU 02-11 05:35 → SURG B 02-11 12:39
PROVIDERS: ADMIT Orthopaedic Surgery; ATTEND Orthopaedic Surgery
PROC: 0SRD0J9 Replacement of Left Knee Joint with Synthetic Substitute, Cemented, Open Approach (ICD-10-PCS; principal; 2021-02-11)
DX: M17.12 Unilateral primary osteoarthritis, left knee (principal); Z96.651 Presence of right artificial knee joint; Z90.710 Acquired absence of both cervix and uterus
CPT/HCPCS: 36415; 85027; C1713; C1776; J0171; J0690; J1100; J1885; J2250; J2405; J2704; J2795; J3010; J3370; J3490; S0020

== ENCOUNTER 2021-02-06 15:38 | Outpatient (CLI) | payer BC, MEDICARE ==
[2021-02-06 16:45] LABS: #Basophils 0.1 10x3/uL (0.0-0.2); #Eosinphils 0.2 10x3/uL (0.0-0.5); #Monocytes 0.4 10x3/uL (0.0-1.1); #Neutrophils 3.3 10x3/uL (1.5-8.4); %Eosinophils 3.4 % (0.0-6.0); %Lymphocytes 35.3 % (18.0-47.0); %Monocytes 6.6 % (0.0-10.0); %Neutrophils 53.4 % (40.0-75.0); Hemoglobin 10.8 g/dL (12.0-15.5); Mean Corpuscular Hemoglobin 23.2 pg (27.0-33.0); Mean Corpuscular Volume 77.4 fl (81.6-98.3); Mean Platelet Volume 11.2 fl (7.4-10.4); Platelet Count 377 10x3/uL (150-450); RBC Distribution Width 14.7 % (11.5-14.5); Red Blood Cell (RBC) Count 4.65 10x6/uL (3.90-5.03); White Blood Cell (WBC) Count 6.1 10x3/uL (3.5-10.5)
[2021-02-06 16:54] LABS: Anion Gap 8 mmol/L (10-20); BUN (Urea Nitrogen) 17 mg/dL (9.8-20.1); Calc. Creatinine Clearance 0 mL/min (70-130); Calcium 9.3 mg/dL (7.8-10.44); Carbon Dioxide 33 mmol/L (23-31); Chloride 102 mmol/L (98-107); Glucose 97 mg/dL (80-115); Potassium 4.2 mmol/L (3.5-5.1); Sodium 139 mmol/L (136-145)
[2021-02-06 16:59] LABS: Prothrombin Time 10.9 sec (9.5-12.1)
[2021-02-07 01:50] LABS: SARS-CoV-2 PCR by NAA Not Detected (NotDetected)
== END 2021-02-06 15:39 | disposition home or self-care (01) ==
LOC: LABBT 15:38
PROVIDERS: ATTEND Orthopaedic Surgery
DX: Z01.818 Encounter for other preprocedural examination (principal); Z20.822 Contact with and (suspected) exposure to COVID-19
CPT/HCPCS: 80048; 85025; 85610; 87081; 87635; 93005; 93010; U0003; U0005

== ENCOUNTER 2021-11-21 15:00 | Outpatient (CLI) | payer BC | END 2021-11-21 15:01 | disposition home or self-care (01) | LOC: BICMAMMO 15:00 | PROVIDERS: ATTEND Family Medicine | DX: Z12.31 Encounter for screening mammogram for malignant neoplasm of breast (principal) | CPT/HCPCS: 77063; 77067 ==